=== PATIENT | female | born 1990 | race Caucasian/White ===

== ENCOUNTER 2017-05-14 00:23 | Emergency (ER) | payer OTHER ==
[~2017-05-14] VITALS: Ht 154.9 cm; Wt 77.1 kg
[2017-05-14 03:06] LABS: ABSOLUTE NEUTROPHILS 6.4 thou/uL (1.4-8.2); BASOPHILS 0.2 % (0.0-2.0); EOSINOPHILS 0.7 % (0.0-3.0); HEMOGLOBIN 11.7 gm/dL (12.0-15.0); LYMPHOCYTES 21.1 % (24.0-44.0); MCH 28.7 pg (26.0-34.0); MCHC 33.3 g/dL (28.0-37.0); MCV 86.3 fL (80.0-100.0); MONOCYTES 6.1 % (1.0-8.0); PLATELET COUNT 305 thou/uL (150-400); POLYS 71.9 % (36.0-66.0); RBC 4.06 mil/uL (4.20-5.00); WBC 8.9 thou/uL (4.0-11.0)
[2017-05-14 03:11] LABS: MANUAL DIFF NO
[2017-05-14 03:12] LABS: CALCIUM 8.8 mg/dL (8.5-10.1); CREATININE 0.9 mg/dL (0.6-1.0)
[2017-05-14 03:14] LABS: PROTIME 10.7 Seconds (9.3-11.4)
[2017-05-14] MEDS ORDERED: NORCO 5-325 TA1 EACH PO (04:23)
[2017-05-14 04:54] VITALS: BP 136/94
== END 2017-05-14 04:56 | disposition home or self-care (01) ==
LOC: ER 00:23
PROVIDERS: Emergency Medicine
DX: S02.2XXA Fracture of nasal bones, initial encounter for closed fracture (principal); S00.83XA Contusion of other part of head, initial encounter; Z98.890 Other specified postprocedural states; Z88.0 Allergy status to penicillin; Z88.6 Allergy status to analgesic agent; Z88.5 Allergy status to narcotic agent; Z88.8 Allergy status to other drugs, medicaments and biological substances; Y04.8XXA Assault by other bodily force, initial encounter; Y93.01 Activity, walking, marching and hiking; Y92.488 Other paved roadways as the place of occurrence of the external cause; Y99.8 Other external cause status